=== PATIENT | male | born 1965 | race Caucasian/White ===

== ENCOUNTER 2019-02-26 04:54 | Emergency (ER) | payer BC ==
[~2019-02-26] VITALS: Ht 188 cm; Wt 136.1 kg
[2019-02-26 05:00] VITALS: BP_SYST 182
--- NOTE | 2019-02-26 05:00 | NUR ---
Patient to ER bed 8 evaluation. Side rails up. Report given to Demetria DON
--- NOTE | 2019-02-26 05:10 | NUR ---
Patient AOx4, ambulatory, presents to ER with complaint of hypertension x1 week. Patient states that his baseline SBP is 170 but for the past week it has been ranging in 190's. Patient states that the last time he seen his PCP was in June and medication adjusted. Patient has not seen PCP for this occurance. BP now 161/81, HR 72. O2 sat 98% RA. No other symptoms or complaints. Hx of HTN, hypercholesteremia, and DM. Patient states he is compliant with meds.
--- NOTE | 2019-02-26 05:35 | NUR ---
ENRIQUETA ARIAS Kwaw at bedside for medical evaluation.
[2019-02-26] MEDS ORDERED: ENALAPRILAT DIHYDRATE 1.25 MG/ML VIAL IVP ONE (05:45)
[2019-02-26] MEDS ORDERED: LISI1TAB11 PO (05:52)
[2019-02-26] MEDS ORDERED: CARV12.548 PO (05:52)
[2019-02-26] MEDS ORDERED: LIP40 PO (05:52)
[2019-02-26] MEDS ORDERED: GLU500 PO (05:52)
[2019-02-26] MEDS ORDERED: GLIP5TAB26 PO (05:52)
--- NOTE | 2019-02-26 05:52 | NUR ---
Medication reconciliation completed with information provided by patient. Any prior medication reconciliation on file was reviewed and corrected.
--- NOTE | 2019-02-26 06:00 | NUR ---
# 20 gauge angiocath placed to LAC. Use of asceptic technique. Opsite placed over site. Blood return noted. Blood for lab drawn from site. Flushed with 10 cc of normal saline. No evidence of infiltration noted. Patient tolerated well.
[2019-02-26 07:10] VITALS: BP_SYST 152
--- NOTE | 2019-02-26 07:10 | NUR ---
Patient given written and verbal discharge instructions and verbalizes understanding. ER MD discussed with patient the results and treatment provided. Patient in stable condition. ID arm band removed. IV catheter removed intact and dressing applied, no active bleeding. Rx of Lisinopril/Hydrochlorothiazide given. Patient educated on pain management and to follow up with PMD. Pain Scale 0/10. Opportunity for questions provided and answered. Medication side effect fact sheet provided.
== END 2019-02-26 07:10 | disposition home or self-care (01) ==
LOC: SED 04:54
DX: I10 Essential (primary) hypertension (principal); E11.9 Type 2 diabetes mellitus without complications; E78.00 Pure hypercholesterolemia, unspecified; Z79.899 Other long term (current) drug therapy
CPT/HCPCS: 96374; 99283; J7040

== ENCOUNTER 2019-02-28 04:49 | Emergency (ER) | payer BC ==
[~2019-02-28] VITALS: Ht 188 cm; Wt 136.1 kg
[~2019-02-28 04:49] MED LIST: CARV12.548 PO; GLIP5TAB26 PO; GLU500 PO; LIP40 PO; LISI1TAB11 PO
[2019-02-28 04:55] VITALS: BP_SYST 191
--- NOTE | 2019-02-28 04:59 | NUR ---
Placed in room 6 . Placed on bus driver/monitor, blood pressure machine and pulse oximeter. To gown for exam. Side rails up. Report given to KRISTIAN DON.
--- NOTE | 2019-02-28 05:10 | NUR ---
Pt c/o high blood pressure when he checked it at home and nausea vomiting around 8pm. Pt states he was here a few days ago for same issue. Pt "felt great yesterday until 8pm." Pt started to vomit and he checked his BP, 200 systolic. Right before he left to go to ED, he checked it again and it was 190 systolic. Pt denies chest pain, fever, headache, or blurred vision. Pt does complain of shortness of breath. No other injuries/complaints per patient or noted.
[2019-02-28] MEDS ORDERED: ONDANSETRON HCL 4 MG/2 ML VIAL IVP ONE (05:15)
[2019-02-28] MEDS ORDERED: hydrALAZINE HCL 20 MG/ML VIAL IVP ONE (05:15)
[2019-02-28] MEDS ORDERED: IPRATROPIUM/ALBUTEROL SULFATE 3 ML AMPUL.NEB (DUONEB) INH ONE (05:45)
[2019-02-28] MEDS ORDERED: LISI1TAB13 PO (06:26)
[2019-02-28] MEDS ORDERED: NS 500 ML IV ONE (06:30)
[2019-02-28 06:35] LABS: BASOPHILS # (AUTO) 0.1 K/uL (0.0-0.2); BASOPHILS % (AUTO) 0.7 % (0.0-2.0); EOSINOPHILS # (AUTO) 0.2 K/uL (0.0-0.4); EOSINOPHILS % (AUTO) 2.2 % (0.0-4.0); HEMATOCRIT 36.7 % (36-54); HEMOGLOBIN 12.5 g/dL (14.0-18.0); LYMPHOCYTES # (AUTO) 0.4 K/uL (1.0-5.5); LYMPHOCYTES % (AUTO) 5.5 % (20.5-51.5); MEAN CORPUSCULAR HEMOGLOBIN 32 pg (27-31); MEAN CORPUSCULAR HGB CONC 34 % (32-36); MEAN CORPUSCULAR VOLUME 93 fL (79.0-98.0); MONOCYTES # (AUTO) 0.6 K/uL (0.0-1.0); MONOCYTES % (AUTO) 7.4 % (1.7-9.3); NEUTROPHILS # (AUTO) 6.3 K/uL (1.8-7.7); NEUTROPHILS % (AUTO) 84.2 % (40.0-70.0); PLATELET COUNT (AUTO) 165 K/uL (130-430); RED BLOOD CELL COUNT(AUTO) 3.93 MIL/uL (4.2-6.2); RED CELL DISTRIBUTION WIDTH 13.7 % (9.0-15.0); WHITE BLOOD COUNT (AUTO) 7.5 K/uL (4.8-10.8)
[2019-02-28 06:39] LABS: ANION GAP 7 (5-15); CALCIUM 10.6 mg/dL (8.4-11.0); CHLORIDE 101 mmol/L (98-107); CREATININE 1.29 mg/dL (0.55-1.30); GLUCOSE 222 mg/dL (70-99); POTASSIUM 3.8 mmol/L (3.5-5.1); SODIUM SERUM 135 mmol/L (136-145); UREA NITROGEN, BLOOD 30 mg/dL (8-21)
[2019-02-28 06:44] LABS: GFR AFRICAN AMERICAN 75 mL/min (>90)
[2019-02-28 06:47] LABS: ALANINE AMINOTRANSFERASE 29 U/L (12-78); ALBUMIN 3.3 g/dL (3.4-4.8); ASPARTATE AMINOTRANSFERASE 18 U/L (10-37); TOTAL BILIRUBIN 1.2 mg/dL (0.0-1.0)
[2019-02-28] MEDS ORDERED: INSULIN REGULAR, HUMAN 10 UNITS/0.1 ML INJ IVP ONE (07:00)
[2019-02-28] MEDS ORDERED: cloNIDine HCL 0.1 MG TABLET PO ONE (07:00)
--- NOTE | 2019-02-28 07:00 | NUR ---
ENRIQUETA Lambert at bedside examining patient.
--- NOTE | 2019-02-28 07:32 | NUR ---
Patient given written and verbal discharge instructions and verbalizes understanding. ER MD discussed with patient the results and treatment provided. Patient in stable condition. ID arm band removed. IV catheter removed intact and dressing applied, no active bleeding. Rx of lisinopril/hctz given. Patient educated on pain management and to follow up with PMD. Pain Scale 0/10. Opportunity for questions provided and answered. Medication side effect fact sheet provided.
[2019-02-28 07:33] VITALS: BP_SYST 148
== END 2019-02-28 07:33 | disposition home or self-care (01) ==
LOC: SED 04:49
DX: E86.0 Dehydration (principal); E11.65 Type 2 diabetes mellitus with hyperglycemia; I10 Essential (primary) hypertension; R11.2 Nausea with vomiting, unspecified; E78.00 Pure hypercholesterolemia, unspecified; Z79.84 Long term (current) use of oral hypoglycemic drugs; Z79.899 Other long term (current) drug therapy
CPT/HCPCS: 36415; 71045; 80053; 83880; 84484; 85025; 93005; 94640; 96361; 96374; 96375; 99284; J0360; J1815; J2405; J7040; J7620